=== PATIENT | male | born 1970 ===

== ENCOUNTER 2017-06-01 13:09 | Day surgery (SDC) | payer OTHER ==
[2017-06-01] VITALS (7 sets, daily range): BP systolic 125–184; BP diastolic 59–86
[~2017-06-01] VITALS: Ht 180.3 cm; Wt 161.1 kg
[2017-06-01] MEDS ORDERED: clindamycin-Cleocin 900mg/D5W 50 ML IV ONE (13:47)
[2017-06-01] MEDS ORDERED: famotidine/PF 10 mg/ml inj IV ONE (13:55)
[2017-06-01 14:34] LABS: BASOPHILS % (AUTO) 0.1 % (0-1); EOSINOPHILS # (AUTO) 0.2 X10'3 (0-0.9); EOSINOPHILS % (AUTO) 1.6 % (0-6); LYMPHOCYTES # (AUTO) 0.6 X10'3 (1.1-4.8); LYMPHOCYTES % (AUTO) 5.5 % (21-51); MEAN CORPUSCULAR HEMOGLOBIN 30.1 PG (27.0-31.0); MEAN CORPUSCULAR HGB CONC 32.7 % (33.0-36.5); MEAN CORPUSCULAR VOLUME 91.9 FL (78-98); MEAN PLATELET VOLUME 9.7 FL (7.4-10.4); MONOCYTES # (AUTO) 0.3 X10'3 (0-0.9); MONOCYTES % (AUTO) 3.1 % (2-12); NEUTROPHILS # (AUTO) 9.3 X10'3 (1.8-7.7); NEUTROPHILS % (AUTO) 89.7 % (42-75); PRE OP HEMATOCRIT 30.6 % (42.0-52.0); PRE OP PLATELET COUNT 183 X10'3 (140-440); RED BLOOD COUNT 3.33 X10'6 (4.70-6.10); RED CELL DISTRIBUTION WIDTH 16.1 % (11.5-14.5)
[2017-06-01 14:45] LABS: PRE OP INR 0.9 INR; PRE OP PROTIME 9.6 SECONDS (9.0-12.0)
[2017-06-01 14:49] LABS: ALBUMIN 2.7 G/DL (3.4-5.0); ALBUMIN/GLOBULIN RATIO 0.6 (1.1-1.5); ALKALINE PHOSPHATASE 116 IU/L (46-116); BLOOD UREA NITROGEN 89 MG/DL (7-18); BUN/CREATININE RATIO 20.2 (5.4-32.0); CALCIUM 8.8 MG/DL (8.5-10.1); CHLORIDE 95 MMOL/L (99-107); PRE OP ANION GAP 10 (8-16); PRE OP AST 60 U/L (10-37); PRE OP BILIRUB, TOTAL 0.5 MG/DL (0.0-1.0); PRE OP POTASSIUM 4.6 MMOL/L (3.4-5.1); PRE OP SODIUM 133 MMOL/L (135-145); TOTAL CARBON DIOXIDE 28.3 MMOL/L (24-32); TOTAL PROTEIN 7.2 G/DL (6.4-8.2); eGFR 14 ML/MIN
[2017-06-01 14:51] LABS: PRE OP ALT 132 U/L (30-65); PRE OP GLUCOSE 209 MG/DL (70-104)
[2017-06-01] MEDS ORDERED: LIDOcaine 1% 30ml vial 0 ML ONE (15:19)
[2017-06-01] MEDS ORDERED: sevoflurane 250ml liquid IH ONE (16:04)
[2017-06-01] MEDS ORDERED: METOCLOPRAMIDE IV (16:07)
[2017-06-01] MEDS ORDERED: METO25TA6 PO (16:07)
[2017-06-01] MEDS ORDERED: ZOF4I (16:07)
[2017-06-01] MEDS ORDERED: PANTOPRAZOLE IV (16:07)
[2017-06-01] MEDS ORDERED: CLON1PAT15 TOP (16:07)
[2017-06-01] MEDS ORDERED: LACT1CAP65 PEG (16:07)
[2017-06-01] MEDS ORDERED: LISI40TA4 PO (16:07)
[2017-06-01] MEDS ORDERED: POLY17PO10 PO (16:07)
[2017-06-01] MEDS ORDERED: ACET160S PO (16:07)
[2017-06-01] MEDS ORDERED: MYCOL15CR TOP (16:07)
[2017-06-01] MEDS ORDERED: NYST1000 PO (16:07)
[2017-06-01] MEDS ORDERED: PRED15SO PO (16:07)
[2017-06-01] MEDS ORDERED: fentaNYL/PF 50MCG/1 ML 2ML syringe ONE (16:13)
[2017-06-01] MEDS ORDERED: insulin regular, human 10 units/0.1 ml syringe IV ONE (16:45)
[2017-06-01] MEDS ORDERED: normal saline 1000ml 1,000 ML IV ONE (16:48)
[2017-06-01] MEDS ORDERED: ondansetron/PF 4mg/2ml inj IV PRN (16:50)
[2017-06-01] MEDS ORDERED: phenylephrine 10mg/ml inj IV ONE (16:53)
[2017-06-02] MEDS ORDERED: ringers solution, lacted 1,000 ML IV SCH (05:00)
== END 2017-06-01 17:30 | disposition short-term general hospital (02) ==
LOC: SSTAY O 13:09
PROVIDERS: ATTEND Surgery
DX: R13.10 Dysphagia, unspecified (principal); Z86.73 Personal history of transient ischemic attack (TIA), and cerebral infarction without residual deficits; E11.22 Type 2 diabetes mellitus with diabetic chronic kidney disease; N18.6 End stage renal disease; E66.01 Morbid (severe) obesity due to excess calories; Z88.0 Allergy status to penicillin; Z88.8 Allergy status to other drugs, medicaments and biological substances
CPT/HCPCS: 36415; 43246; 80053; 82948; 85025; 85610; 85730; 93005; A6449; J1815; J2370; J3010; J3490; J7030; A7000; J7120